=== PATIENT | female | born 1965 | race African-American/Black ===

== ENCOUNTER 2021-02-17 14:25 | Emergency (ER) | payer SELFPAY ==
[2021-02-17] MEDS ORDERED: Dexamethasone 10 MG/ML VIAL ONE (14:59)
[2021-02-17] MEDS ORDERED: Ketorolac Tromethamine 30 MG/ML VIAL ONE (14:59)
== END 2021-02-17 15:03 | disposition home or self-care (01) ==
LOC: BURERS 14:25
DX: M62.838 Other muscle spasm (principal)
CPT/HCPCS: 96372; 99283; J1100; J1885

== ENCOUNTER 2021-12-21 13:38 | Emergency (ER) | payer SELFPAY ==
[2021-12-21] MEDS ORDERED: predniSONE 20 MG TAB ONE (13:51)
[2021-12-21] MEDS ORDERED: Famotidine 20 MG TAB ONE (13:51)
== END 2021-12-21 20:55 | disposition home or self-care (01) ==
LOC: BURERS 13:38
DX: T63.461A Toxic effect of venom of wasps, accidental (unintentional), initial encounter (principal)
CPT/HCPCS: 99282; J7512

== ENCOUNTER 2022-01-25 11:09 | Outpatient (CLI) | payer OTHER | END 2022-01-25 11:10 | disposition home or self-care (01) | LOC: BURRAD 11:09 | PROVIDERS: ATTEND Family Medicine | DX: M53.3 Sacrococcygeal disorders, not elsewhere classified (principal); M17.0 Bilateral primary osteoarthritis of knee; M51.37 Other intervertebral disc degeneration, lumbosacral region | CPT/HCPCS: 72202 ==

== ENCOUNTER 2022-02-07 11:41 | Outpatient (CLI) | payer OTHER | END 2022-02-07 11:42 | disposition home or self-care (01) | LOC: BURRAD 11:41 | PROVIDERS: ATTEND Family Medicine | DX: R29.898 Other symptoms and signs involving the musculoskeletal system (principal) ==

== ENCOUNTER 2022-06-04 17:23 | Emergency (ER) | payer OTHER ==
[2022-06-04] MEDS ORDERED: Ketorolac Tromethamine 60 MG/2 ML VIAL ONE (17:41)
== END 2022-06-04 17:57 | disposition home or self-care (01) ==
LOC: BURERS 17:23
DX: S39.012A Strain of muscle, fascia and tendon of lower back, initial encounter (principal); M54.40 Lumbago with sciatica, unspecified side; Z79.899 Other long term (current) drug therapy; W19.XXXA Unspecified fall, initial encounter
CPT/HCPCS: 72100; 96372; J1885

== ENCOUNTER 2022-09-28 20:49 | Emergency (ER) | payer OTHER ==
[2022-09-28 21:30] LABS: #Basophils 0.1 thou/uL (0.0-0.2); #Eosinphils 0.3 thou/uL (0.0-0.7); #Lymphocytes 1.9 thou/uL (1.20-3.40); #Monocytes 0.7 thou/uL (0.11-0.59); #Neutrophils 7.1 thou/uL (1.40-6.50); %Eosinophils 2.7 % (0.0-10.0); %Monocytes 6.7 % (0.0-10.0); %Neutrophils 70.5 % (42.0-75.0); Mean Corpuscular HGB CONC 32.6 g/dL (32.0-36.0); Mean Corpuscular Hemoglobin 30.5 pg (27.0-31.0); Mean Corpuscular Volume 93.7 fl (78.0-98.0); Mean Platelet Volume 9.2 fL (7.4-10.4); Platelet Count 291 10x3/uL (130-400); RBC Distribution Width 13.2 % (11.5-14.5); White Blood Cell (WBC) Count 10.1 10x3/uL (4.8-10.8)
[2022-09-28] MEDS ORDERED: Acetaminophen 325 MG TAB ONE (21:37)
[2022-09-28] MEDS ORDERED: traMADol HCl 50 MG TAB ONE (21:37)
[2022-09-28 21:41] LABS: Bilirubin Negative (Negative); Blood, Urine Trace (Negative); Clarity Clear (Clear); Glucose, Urine (Dipstick) Negative (Negative); Ketone, Urine Negative (Negative); Leukocyte Negative (Negative); Nitrite Negative (Negative); Protein, Urine (Dipstick) Negative (Neg-Trace); pH, Urine 5.5 (5.0-9.0)
[2022-09-28 21:43] LABS: Anion Gap 12 mmol/L (10-20); BUN (Urea Nitrogen) 21 mg/dL (9.8-20.1); Calc. Creatinine Clearance 0 mL/min (70-130); Calcium 9.8 mg/dL (7.8-10.44); Carbon Dioxide 26 mmol/L (22-29); Chloride 106 mmol/L (98-107); Estimated GFR 78; Glucose 90 mg/dL (70-105); Magnesium 2.2 mg/dL (1.6-2.6); Potassium 4.2 mmol/L (3.5-5.1); Sodium 140 mmol/L (136-145)
[2022-09-28 21:45] LABS: Specific Gravity, Urine 1.026 (1.002-1.036)
[2022-09-28 21:51] LABS: Bacteria/HPF None Seen HPF (None Seen); RBC/HPF 0-3 HPF (0-3); Squamous Epithelial 0-3 HPF (0-3); WBC/HPF 0-3 HPF (0-3)
== END 2022-09-28 22:13 | disposition home or self-care (01) ==
LOC: BURERS 20:49
DX: M94.0 Chondrocostal junction syndrome [Tietze] (principal); I25.2 Old myocardial infarction
CPT/HCPCS: 71045; 80048; 81003; 81015; 83605; 83735; 83880; 84443; 84484; 85025; 85379; 93005

== ENCOUNTER 2022-12-30 10:54 | Emergency (ER) | payer OTHER ==
[2022-12-30] MEDS ORDERED: methylPREDNISolone Sod Succ/PF 125 MG/2 ML VIAL ONE (11:21)
== END 2022-12-30 11:25 | disposition home or self-care (01) ==
LOC: BURERS 10:54
DX: M54.41 Lumbago with sciatica, right side (principal)
CPT/HCPCS: 96372; 99283; J2930

== ENCOUNTER 2023-10-03 21:24 | Emergency (ER) | payer OTHER ==
[2023-10-03] MEDS ORDERED: Morphine 4 MG/ML VIAL ONE (21:52)
[2023-10-03] MEDS ORDERED: predniSONE 20 MG TAB ONE (21:53)
== END 2023-10-03 22:18 | disposition home or self-care (01) ==
LOC: BURERS 21:24
DX: M54.50 Low back pain, unspecified (principal); I25.2 Old myocardial infarction
CPT/HCPCS: 96372; 99283; J2270; J7512

== ENCOUNTER 2023-10-23 15:40 | Outpatient (CLI) | payer OTHER | END 2023-10-23 15:41 | disposition home or self-care (01) | LOC: BURRAD 15:40 | PROVIDERS: ATTEND Family Medicine | DX: M54.32 Sciatica, left side (principal); R05.3 Chronic cough; R09.3 Abnormal sputum; M47.816 Spondylosis without myelopathy or radiculopathy, lumbar region | CPT/HCPCS: 71046; 72100 ==

== ENCOUNTER 2023-11-01 09:31 | Emergency (ER) | payer OTHER ==
[2023-11-01 10:13] LABS: Eosinophils 2 % (0-10); Hematocrit 34.9 % (36.0-47.0); Hemoglobin 10.9 g/dL (12.0-16.0); Lymphocytes 34 % (21-51); MDiff Complete? YES; Mean Corpuscular HGB CONC 31.3 g/dL (32.0-36.0); Mean Corpuscular Hemoglobin 29.3 pg (27.0-31.0); Mean Corpuscular Volume 93.6 fl (78.0-98.0); Mean Platelet Volume 6.8 fL (7.4-10.4); Monocytes 4 % (0-10); Neutrophil 60 % (42-75); Platelet Count 394 10x3/uL (130-400); RBC Distribution Width 13.1 % (11.5-14.5); Red Blood Cell (RBC) Count 3.72 mill/uL (4.20-5.40); White Blood Cell (WBC) Count 5.9 10x3/uL (4.8-10.8)
[2023-11-01 10:20] LABS: ALT (SGPT) 16 U/L (8-55); AST (SGOT) 14 U/L (5-34); Albumin 3.7 g/dL (3.5-5.0); Alkaline Phosphatase 96 U/L (40-110); Anion Gap 12 mmol/L (10-20); BUN (Urea Nitrogen) 14 mg/dL (9.8-20.1); Bilirubin, Total 0.5 mg/dL (0.2-1.2); Calc. Creatinine Clearance 0 mL/min (70-130); Calcium 9.5 mg/dL (7.8-10.44); Carbon Dioxide 26 mmol/L (22-29); Chloride 108 mmol/L (98-107); Estimated GFR 74; Globulin 2.9 g/dL (2.4-3.5); Glucose 92 mg/dL (70-105); Lipase 17 U/L (8-78); Potassium 4.4 mmol/L (3.5-5.1); Protein, Total 6.6 g/dL (6.0-8.3); Sodium 142 mmol/L (136-145); Troponin I Less than 0.010 ng/mL (< 0.028)
[2023-11-01] MEDS ORDERED: Lidocaine Viscous Sol 2% 15 ml UD Cup ONE (11:59)
[2023-11-01] MEDS ORDERED: Mag-Al Plus 1200/1200/120 MG (30 mL) UDCUP ONE (11:59)
[2023-11-01 12:51] LABS: Troponin I Less than 0.010 ng/mL (< 0.028)
== END 2023-11-01 13:07 | disposition home or self-care (01) ==
LOC: BURERS 09:31
DX: R07.9 Chest pain, unspecified (principal)
CPT/HCPCS: 36415; 71045; 80053; 83690; 83735; 83880; 84484; 85025; 93005

== ENCOUNTER 2023-12-03 15:34 | Outpatient (CLI) | payer OTHER | END 2023-12-03 15:35 | disposition home or self-care (01) | LOC: BURRAD 15:34 | PROVIDERS: ATTEND Physician Assistant | DX: M47.817 Spondylosis without myelopathy or radiculopathy, lumbosacral region (principal); M47.816 Spondylosis without myelopathy or radiculopathy, lumbar region | CPT/HCPCS: 72100 ==

== ENCOUNTER 2024-02-21 23:56 | Emergency (ER) | payer OTHER ==
[2024-02-22] MEDS ORDERED: Ketorolac Tromethamine 30 MG (1 mL) VIAL ONE (00:33)
[2024-02-22] MEDS ORDERED: predniSONE 20 MG TAB ONE (00:33)
== END 2024-02-22 01:00 | disposition home or self-care (01) ==
LOC: BURERS 23:56
DX: S39.011A Strain of muscle, fascia and tendon of abdomen, initial encounter (principal)
CPT/HCPCS: 99283; J1885; J7512

== ENCOUNTER 2024-04-06 08:26 | Emergency (ER) | payer OTHER ==
[2024-04-06] MEDS ORDERED: predniSONE 20 MG TAB ONE (09:10)
== END 2024-04-06 09:15 | disposition home or self-care (01) ==
LOC: BURERS 08:26
DX: M17.12 Unilateral primary osteoarthritis, left knee (principal); M19.072 Primary osteoarthritis, left ankle and foot; M19.071 Primary osteoarthritis, right ankle and foot; G89.29 Other chronic pain; M54.9 Dorsalgia, unspecified
CPT/HCPCS: 99283; J7512

== ENCOUNTER 2024-04-26 11:31 | Emergency (ER) | payer OTHER | END 2024-04-26 12:08 | disposition home or self-care (01) | LOC: BURERS 11:31 | DX: H10.211 Acute toxic conjunctivitis, right eye (principal); M54.31 Sciatica, right side | CPT/HCPCS: 99283 ==

== ENCOUNTER 2024-09-12 12:18 | Emergency (ER) | payer OTHER ==
[2024-09-12] MEDS ORDERED: predniSONE 20 MG TAB ONE (14:07)
[2024-09-12] MEDS ORDERED: Acetaminophen 500 MG TAB ONE (14:07)
== END 2024-09-12 14:10 | disposition home or self-care (01) ==
LOC: BURERS 12:18
DX: M79.605 Pain in left leg (principal); E66.9 Obesity, unspecified; M10.9 Gout, unspecified
CPT/HCPCS: 99283; J7512

== ENCOUNTER 2025-01-07 22:43 | Emergency (ER) | payer OTHER ==
[2025-01-08] MEDS ORDERED: Ibuprofen 200 MG TAB ONE (00:37)
[2025-01-08] MEDS ORDERED: predniSONE 20 MG TAB ONE (00:37)
== END 2025-01-08 01:26 | disposition home or self-care (01) ==
LOC: BURERS 22:43
DX: M25.562 Pain in left knee (principal); M79.631 Pain in right forearm; M54.30 Sciatica, unspecified side; I25.2 Old myocardial infarction
CPT/HCPCS: 99283; J7512

== ENCOUNTER 2025-02-07 17:16 | Emergency (ER) | payer OTHER ==
[2025-02-07] MEDS ORDERED: predniSONE 20 MG TAB ONE (17:39)
[2025-02-07] MEDS ORDERED: HYDROcodone/Acetaminophen 5/325 mg Tablet ONE (17:39)
[2025-02-07] MEDS ORDERED: Orphenadrine Citrate 60 MG/2 ML VIAL ONE (17:39)
== END 2025-02-07 18:12 | disposition home or self-care (01) ==
LOC: BURERS 17:16
DX: S39.012A Strain of muscle, fascia and tendon of lower back, initial encounter (principal); S76.012A Strain of muscle, fascia and tendon of left hip, initial encounter; S76.912A Strain of unspecified muscles, fascia and tendons at thigh level, left thigh, initial encounter; M54.42 Lumbago with sciatica, left side; I25.2 Old myocardial infarction
CPT/HCPCS: 96372; 99283; J1885; J2360; J7512

== ENCOUNTER 2025-04-05 13:57 | Emergency (ER) | payer OTHER, MEDICAID ==
[2025-04-05] MEDS ORDERED: Dexamethasone 4 MG TAB ONE (14:34)
[2025-04-05] MEDS ORDERED: Ibuprofen 200 MG TAB ONE (14:35)
== END 2025-04-05 14:45 | disposition home or self-care (01) ==
LOC: BURERS 13:57
DX: M54.42 Lumbago with sciatica, left side (principal); I25.2 Old myocardial infarction
CPT/HCPCS: J8540

== ENCOUNTER 2025-04-28 18:12 | Emergency (ER) | payer OTHER, MEDICAID ==
[2025-04-28] MEDS ORDERED: predniSONE 20 MG TAB ONE (19:04)
== END 2025-04-28 19:10 | disposition home or self-care (01) ==
LOC: BURERS 18:12
DX: G44.209 Tension-type headache, unspecified, not intractable (principal); I10 Essential (primary) hypertension; I25.2 Old myocardial infarction; Z79.82 Long term (current) use of aspirin; Z79.899 Other long term (current) drug therapy
CPT/HCPCS: 99284; J7512